=== PATIENT | male | born 1945 | race Two or more races ===

== ENCOUNTER → 2021-06-23 | Outpatient (CLI) | payer MEDICARE, OTHER ==
[~2021-06-23] MED LIST: AMLO5 PO; GLIP5 PO; HYDCHL12.5; Hytrin2 MG; IBUP600 PO; LOSA50; LOSARTAN-HCTZ1 EACH PO; LOSHYD100; METF500 PO; OMEP20ER PO; Percocet 5-3251 EACH PO; Valium5 MG PO
== END ==
LOC: LAB SHORT 15:12
DX: L98.9 Disorder of the skin and subcutaneous tissue, unspecified (principal); L30.8 Other specified dermatitis
CPT/HCPCS: 88305; 88312

== ENCOUNTER 2022-04-10 11:44 | Inpatient (IN) | payer MEDICARE, OTHER ==
[~2022-04-10] VITALS: Ht 177.8 cm; Wt 99.5 kg
[2022-04-10 12:46] LABS: Hematocrit 42.8 % (37.0-53.0); Hemoglobin 14.1 g/dL (13.5-17.5); Mean Corpuscular HGB 27.6 pg (26.0-34.0); Mean Corpuscular HGB Conc 32.9 g/dL (31.5-36.5); Mean Corpuscular Volume 84 fL (80-100); Mean Platelet Volume 9.3 fL (9.1-12.4); Platelet Count 661 K/mm3 (150-400); RDW Coefficient Variation 12.9 % (11.7-14.2); RDW Standard Deviation 39.5 fL (35.1-46.3); Red Blood Cell Count 5.11 M/mm3 (4.30-5.90); White Blood Cell Count 23.82 K/mm3 (4.00-11.30)
[2022-04-10 12:59] LABS: Influenza A, PCR NEGATIVE (NEGATIVE); Influenza B, PCR NEGATIVE (NEGATIVE); Resp Syncytial Virus, PCR NEGATIVE (NEGATIVE); SARS-Cov-2 (COVID-19) PCR, MMC NEGATIVE (NEGATIVE)
[2022-04-10 13:03] LABS: BAND PERCENT MAN 1 % (0-8); BASOPHILS PERCENT MAN 0 % (0-2); EOSINOPHILS PERCENT MAN 0 % (0-6); LYMPHOCYTES ABSOLUTE MAN 0.95 K/mm3 (0.84-5.20); LYMPHOCYTES PERCENT MAN 4 % (21-46); MONOCYTES ABSOLUTE MAN 0.71 K/mm3 (0.16-1.47); MONOCYTES PERCENT MAN 3 % (4-13); NEUTROPHILS ABSOLUTE MAN 22.15 K/mm3 (1.96-9.15); SEG NEUTROPHILS PERCENT MAN 92 % (41-73); TOTAL CELLS COUNTED 100
[2022-04-10 13:06] LABS: Albumin, Blood 2.2 g/dL (3.4-5.0); Albumin/Globulin Ratio 0.5 (0.8-1.8); Bilirubin, Total 0.9 mg/dL (0.1-1.0); Bun/Creatinine Ratio 16.6 (12.0-20.0); Calcium, Blood 8.6 mg/dL (8.5-10.1); Creatinine, Blood 0.97 mg/dL (0.60-1.20); Globulin, Blood 4.5 g/dL (2.2-4.0); Potassium, Blood 3.7 mmol/L (3.5-5.5); Total Protein, Blood 6.7 g/dL (6.4-8.2)
[2022-04-10] MEDS ORDERED: AMLO10 PO (17:22)
[2022-04-10] MEDS ORDERED: ASPI81CH PO (17:23)
[2022-04-10] MEDS ORDERED: CARDURA2 M1 PO (17:24)
[2022-04-10] MEDS ORDERED: Flonase 0.05% Nasal (17:26)
[2022-04-10] MEDS ORDERED: GLIP5 PO (17:27)
[2022-04-10] MEDS ORDERED: LOSARTAN-HCTZ1 EAC3 PO (17:28)
[2022-04-10] MEDS ORDERED: Glucophage 500 mg PO (17:30)
[2022-04-10] MEDS ORDERED: OMEP20ER PO (17:31)
[2022-04-11 05:08] LABS: BASOPHILS ABSOLUTE AUTO 0.07 K/mm3 (0.00-0.23); BASOPHILS PERCENT AUTO 0 % (0-2); EOSINOPHILS ABSOLUTE AUTO 0.27 K/mm3 (0.00-0.68); EOSINOPHILS PERCENT AUTO 1 % (0-6); Hematocrit 40.1 % (37.0-53.0); Hemoglobin 13.3 g/dL (13.5-17.5); IMMATURE GRAN ABSOLUTE AUTO 0.32 K/mm3 (0.00-0.10); IMMATURE GRAN PERCENT AUTO 2 % (0-1); LYMPHOCYTES ABSOLUTE AUTO 1.42 K/mm3 (0.84-5.20); LYMPHOCYTES PERCENT AUTO 7 % (21-46); MONOCYTES ABSOLUTE AUTO 1.64 K/mm3 (0.16-1.47); MONOCYTES PERCENT AUTO 8 % (4-13); Mean Corpuscular HGB 27.7 pg (26.0-34.0); Mean Corpuscular HGB Conc 33.2 g/dL (31.5-36.5); Mean Corpuscular Volume 84 fL (80-100); Mean Platelet Volume 9.1 fL (9.1-12.4); NEUTROPHILS ABSOLUTE AUTO 16.98 K/mm3 (1.96-9.15); NEUTROPHILS PERCENT AUTO 82 % (41-73); Platelet Count 596 K/mm3 (150-400); RDW Standard Deviation 39.8 fL (35.1-46.3)
[2022-04-11 05:38] LABS: Albumin, Blood 1.9 g/dL (3.4-5.0); Albumin/Globulin Ratio 0.5 (0.8-1.8); Bilirubin, Total 0.7 mg/dL (0.1-1.0); Bun/Creatinine Ratio 17.6 (12.0-20.0); Calcium, Blood 8.5 mg/dL (8.5-10.1); Creatinine, Blood 0.85 mg/dL (0.60-1.20); Globulin, Blood 4.2 g/dL (2.2-4.0); Magnesium, Blood 2.4 mg/dL (1.6-2.4); Potassium, Blood 3.6 mmol/L (3.5-5.5); Total Protein, Blood 6.1 g/dL (6.4-8.2)
--- NOTE | 2022-04-11 12:43 | NUR ---
ADMIT NOTE PATIENT NEW ADMIT FROM ER FOR CAVITATED PNEUMONIA WITH SEVERE SEPSIS. ALERT AND ORIENTED ON ARRIVAL TO ROOM. PLEASANT AND COOPERATIVE. MAINTAINING O2 SATS ABOVE 90% ON 4L NC. EXP WHEEZE AND DIM BILAT. WEAK AND SHAKY ON SBA TRANSFER TO BED. BM AND VOIDING WITH URINAL AND BSC. IV FLUID AND ABX RUNNING. CBG COVERED WITH SS. DR SARMIENTO CONSULTED, HE PERFORMED BEDSIDE US AND RECOMMENDS RADIOLOGY GUIDED THORACENTESIS. CT PE STUDY AFTER 1600 TODAY. REPORT GIVEN TO CROSS CUT SAWYER.
--- NOTE | 2022-04-11 15:15 | NUR ---
Discussing care with Dr Caceres, plans for thoracentesis tomorrow afternoon due to lovenox administration and plans for pe study this afternoon/evening, new order to discontinue CT PE study. Will continue to monitor.
--- NOTE | 2022-04-11 17:11 | NUR ---
Shift Summary Assumed care of patient at approx 1138, bedside report from JEVON Mohr. Pt alert, orineted x4, calm and cooperative with care. Pt resting in bed, assisting with repositioning. Pt sob with activity, spo2 >90% on 4-5l o2 via nc, ls clear in upper lobes and diminished in bases. Tele sinus tach 100-110's, occasionally touching 120's with activity, bp elevated this am, trending down. Abd soft, nontender, normoactive bt noted. Edema to ble 1+ pitting. Other vss. No other acute changes noted. Will continue to monitor.
[2022-04-12 04:47] LABS: BASOPHILS ABSOLUTE AUTO 0.08 K/mm3 (0.00-0.23); BASOPHILS PERCENT AUTO 1 % (0-2); EOSINOPHILS ABSOLUTE AUTO 0.24 K/mm3 (0.00-0.68); EOSINOPHILS PERCENT AUTO 2 % (0-6); Hematocrit 38.8 % (37.0-53.0); Hemoglobin 12.6 g/dL (13.5-17.5); IMMATURE GRAN ABSOLUTE AUTO 0.28 K/mm3 (0.00-0.10); IMMATURE GRAN PERCENT AUTO 2 % (0-1); LYMPHOCYTES ABSOLUTE AUTO 1.04 K/mm3 (0.84-5.20); LYMPHOCYTES PERCENT AUTO 7 % (21-46); MONOCYTES ABSOLUTE AUTO 1.19 K/mm3 (0.16-1.47); MONOCYTES PERCENT AUTO 8 % (4-13); Mean Corpuscular HGB 28.4 pg (26.0-34.0); Mean Corpuscular HGB Conc 32.5 g/dL (31.5-36.5); Mean Corpuscular Volume 87 fL (80-100); Mean Platelet Volume 9.2 fL (9.1-12.4); NEUTROPHILS ABSOLUTE AUTO 12.19 K/mm3 (1.96-9.15); NEUTROPHILS PERCENT AUTO 81 % (41-73); Platelet Count 508 K/mm3 (150-400); RDW Coefficient Variation 13.2 % (11.7-14.2); RDW Standard Deviation 41.3 fL (35.1-46.3); Red Blood Cell Count 4.44 M/mm3 (4.30-5.90); White Blood Cell Count 15.02 K/mm3 (4.00-11.30)
[2022-04-12 05:03] LABS: Albumin, Blood 1.6 g/dL (3.4-5.0); Albumin/Globulin Ratio 0.4 (0.8-1.8); Bilirubin, Total 0.5 mg/dL (0.1-1.0); Calcium, Blood 7.8 mg/dL (8.5-10.1); Globulin, Blood 3.9 g/dL (2.2-4.0); Magnesium, Blood 2.2 mg/dL (1.6-2.4); Potassium, Blood 3.3 mmol/L (3.5-5.5); Total Protein, Blood 5.5 g/dL (6.4-8.2)
--- NOTE | 2022-04-12 06:08 | NUR ---
SHIFT SUMMARY NO ACUTE EVENTS OVERNIGHT. PT ALERT AND ORIENTED X4. AFEBRILE. SR/ST 90-100'S. BP STABLE. ON CPAP 3L BLEED IN SATS OVER 93%. X1 ASSIST FOR ADL'S. 1/2NS INFUSING @125/HR. IN BED SLEEPING WITH CALL ALARM AT SIDE, WILL CONTINUE TO MONITOR UNTIL REPORT GIVEN TO ONCOMING RN
[2022-04-12 07:55] LABS: International Normalized Ratio 1.25; Prothrombin Time Results 12.9 Sec (9.7-11.5)
--- NOTE | 2022-04-12 14:45 | NUR ---
Upon receiving a spiritual care referral, I visit pt. Patient immediately explains that his greatest concern is his who is in [place] memory care unit on hospice. He shares personal stories and struggles that he is going through. I conduct a life review, encourage self-care, normalize his exerience and provide therapeutic listening, and prayer. Pt responds well and shows signs of reduced stress and greater inner peace. I will continue to remain available to patient and family.
--- NOTE | 2022-04-12 17:29 | NUR ---
SHIFT SUMMARY PT HAS BEEN RESTING IN ROOM, THEY SLEPT FOR ABOUT TWO HOURS IN THE EARLY AFTERNOON. OXYGEN HAS BEEN TITRATED DOWN TO 2 L/MIN BY NASAL CANNULA AND HAS MAINTAINED SPO2 OF >90%. PT HAS DENIED ANY COMPLAINT OF PAIN OR DISCOMFORT. HEART RATE HAS PERSISTED 90-110 BPM, AND RESPIRATIONS 18-20. BLOOD GLUCOSE HAS PERSISTED IN THE HIGH 200'S (260-285). PT WAS UP TO BEDSIDE COMMODE BY STAND-BY ASSIST ON MULTIPLE OCCASIONS AND WAS ABLE TO GET SELF TO STANDING TO USE URINAL AT BEDSIDE UNASSISTED.
[2022-04-12 23:09] LABS: Vancomycin, Trough 13.4 ug/mL (5.0-10.0)
[2022-04-13 06:41] LABS: BASOPHILS ABSOLUTE AUTO 0.12 K/mm3 (0.00-0.23); BASOPHILS PERCENT AUTO 1 % (0-2); EOSINOPHILS ABSOLUTE AUTO 0.32 K/mm3 (0.00-0.68); EOSINOPHILS PERCENT AUTO 2 % (0-6); Hematocrit 38.6 % (37.0-53.0); Hemoglobin 12.6 g/dL (13.5-17.5); IMMATURE GRAN ABSOLUTE AUTO 0.42 K/mm3 (0.00-0.10); IMMATURE GRAN PERCENT AUTO 3 % (0-1); LYMPHOCYTES ABSOLUTE AUTO 1.38 K/mm3 (0.84-5.20); LYMPHOCYTES PERCENT AUTO 9 % (21-46); MONOCYTES ABSOLUTE AUTO 1.35 K/mm3 (0.16-1.47); MONOCYTES PERCENT AUTO 9 % (4-13); Mean Corpuscular HGB 28.2 pg (26.0-34.0); Mean Corpuscular HGB Conc 32.6 g/dL (31.5-36.5); Mean Corpuscular Volume 86 fL (80-100); Mean Platelet Volume 9.2 fL (9.1-12.4); NEUTROPHILS PERCENT AUTO 76 % (41-73); Platelet Count 495 K/mm3 (150-400); RDW Coefficient Variation 13.2 % (11.7-14.2); RDW Standard Deviation 41.6 fL (35.1-46.3); Red Blood Cell Count 4.47 M/mm3 (4.30-5.90); White Blood Cell Count 15.09 K/mm3 (4.00-11.30)
[2022-04-13 06:53] LABS: Albumin, Blood 1.6 g/dL (3.4-5.0); Albumin/Globulin Ratio 0.4 (0.8-1.8); Bilirubin, Total 0.5 mg/dL (0.1-1.0); Bun/Creatinine Ratio 14.8 (12.0-20.0); Calcium, Blood 7.3 mg/dL (8.5-10.1); Creatinine, Blood 0.88 mg/dL (0.60-1.20); Globulin, Blood 4.2 g/dL (2.2-4.0); Magnesium, Blood 2.1 mg/dL (1.6-2.4); Phosphorus, Blood 3.3 mg/dL (2.5-4.9); Potassium, Blood 3.5 mmol/L (3.5-5.5); Total Protein, Blood 5.8 g/dL (6.4-8.2)
--- NOTE | 2022-04-13 07:30 | NUR ---
SHIFT SUMMARY NO ACUTE EVENTS OVERNIGHT. PT ALERT AND ORIENTED X4. ON 1.5L-3L NC SATS OVER 92%. BP STABLE. AFEBRILE. ON CPAP WHILE SLEEPING. SBA FOR ADL'S. PT SLEEPING WITH CALL ALARM AT SIDE
--- NOTE | 2022-04-13 16:33 | NUR ---
SHIFT SUMMARY PT HAS BEEN RESTING IN ROOM THROUGHOUT THE DAY. PT HAS EXPRESSED AN INCREASED FEELING OF TIREDNESS TODAY OVER YESTERDAY. SUPPLEMENTAL OXYGEN HAS REMAINED STEADY AT 3L/MIN VIA NASAL CANNULA, SPO2 HAS READ 92-94%. PT HAS COMPLAINED OF CHEST DISCOMFORT RELATED TO PERSISTENT PRODUCTIVE COUGH, PROVIDER WAS NOTIFIED AND ORDERS WERE OBTAINED.
[2022-04-14 03:58] LABS: BASOPHILS ABSOLUTE AUTO 0.13 K/mm3 (0.00-0.23); BASOPHILS PERCENT AUTO 1 % (0-2); EOSINOPHILS ABSOLUTE AUTO 0.43 K/mm3 (0.00-0.68); EOSINOPHILS PERCENT AUTO 3 % (0-6); Hemoglobin 12.4 g/dL (13.5-17.5); IMMATURE GRAN ABSOLUTE AUTO 0.42 K/mm3 (0.00-0.10); IMMATURE GRAN PERCENT AUTO 3 % (0-1); LYMPHOCYTES ABSOLUTE AUTO 1.47 K/mm3 (0.84-5.20); LYMPHOCYTES PERCENT AUTO 10 % (21-46); MONOCYTES ABSOLUTE AUTO 1.36 K/mm3 (0.16-1.47); MONOCYTES PERCENT AUTO 9 % (4-13); Mean Corpuscular HGB 27.8 pg (26.0-34.0); Mean Corpuscular HGB Conc 32.6 g/dL (31.5-36.5); Mean Corpuscular Volume 85 fL (80-100); Mean Platelet Volume 9.1 fL (9.1-12.4); NEUTROPHILS ABSOLUTE AUTO 11.61 K/mm3 (1.96-9.15); NEUTROPHILS PERCENT AUTO 75 % (41-73); Platelet Count 483 K/mm3 (150-400); RDW Coefficient Variation 13.2 % (11.7-14.2); RDW Standard Deviation 40.9 fL (35.1-46.3); Red Blood Cell Count 4.46 M/mm3 (4.30-5.90); White Blood Cell Count 15.42 K/mm3 (4.00-11.30)
[2022-04-14 04:18] LABS: Albumin, Blood 1.6 g/dL (3.4-5.0); Albumin/Globulin Ratio 0.4 (0.8-1.8); Bilirubin, Total 0.5 mg/dL (0.1-1.0); Bun/Creatinine Ratio 14.6 (12.0-20.0); Calcium, Blood 7.8 mg/dL (8.5-10.1); Creatinine, Blood 0.96 mg/dL (0.60-1.20); Globulin, Blood 4.3 g/dL (2.2-4.0); Potassium, Blood 3.5 mmol/L (3.5-5.5); Total Protein, Blood 5.9 g/dL (6.4-8.2)
--- NOTE | 2022-04-14 05:54 | NUR ---
SHIFT SUMMARY NO ACUTE EVENTS OVERNIGHT. PT ALERT AND ORIENTED X4. ON 3L NC THROUGHOUT THE NIGHT, SATS OVER 92%. AFEBRILE. HR SR/ST 90-100'S. BP STABLE. NO RESPIRATORY DISTRESS OTHER THAN AN EPISODE OF HARSH COUGHING. TKO RUNNING FOR ANTIBIOTICS. SBA FOR ADL'S. IN BED SLEEPING WITH CALL ALARM AT SIDE, WILL CONTINUE TO MONITOR UNTIL REPORT GIVEN TO DAYSHIFT RN
[2022-04-14 11:58] LABS: Vancomycin, Trough 15.2 ug/mL (5.0-10.0)
--- NOTE | 2022-04-14 16:10 | NUR ---
After pt has a visit from DR. Julian, I visit with pt. Pt is light hearted at first then becomes quite tearful. He lists his fears and concerns. One of the main concerns is his spouse, Stefania, who is on hosp[facility] care at [facility] with D[facility]. He has questions centered around God and nazario. I normalize his experience, and provide therapeutic listening, gentle grief counsellor, theraological insights and prayer. Pt responds well and shows signs of increased peace. I will continue to remain available.
--- NOTE | 2022-04-14 17:20 | NUR ---
SHIFT SUMMARY PT HAS BEEN RESTING IN BED, THEY SLEPT FOR ABOUT AN HOUR AROUND MIDDAY. SUPPLEMENTAL OXYGEN WAS TITRATED DOWN TO 2L/MIN BY NASAL CANNULA AND SPO2 REMAINED >90%. PT STATED THAT THEY FEEL THAT THEY ARE BREATHING BETTER TODAY. PT WAS ABLE TO STAND AT BEDSIDE AND TRANSFER TO [facility] UNASSISTED. HEART RATE HAS MAINTAINED 90-110 BPM.
[2022-04-15 04:26] LABS: BASOPHILS ABSOLUTE AUTO 0.12 K/mm3 (0.00-0.23); BASOPHILS PERCENT AUTO 1 % (0-2); EOSINOPHILS ABSOLUTE AUTO 0.42 K/mm3 (0.00-0.68); EOSINOPHILS PERCENT AUTO 3 % (0-6); Hematocrit 38.9 % (37.0-53.0); Hemoglobin 12.5 g/dL (13.5-17.5); IMMATURE GRAN ABSOLUTE AUTO 0.42 K/mm3 (0.00-0.10); IMMATURE GRAN PERCENT AUTO 3 % (0-1); LYMPHOCYTES ABSOLUTE AUTO 1.36 K/mm3 (0.84-5.20); LYMPHOCYTES PERCENT AUTO 9 % (21-46); MONOCYTES ABSOLUTE AUTO 1.36 K/mm3 (0.16-1.47); MONOCYTES PERCENT AUTO 9 % (4-13); Mean Corpuscular HGB 27.4 pg (26.0-34.0); Mean Corpuscular HGB Conc 32.1 g/dL (31.5-36.5); Mean Corpuscular Volume 85 fL (80-100); Mean Platelet Volume 9.3 fL (9.1-12.4); NEUTROPHILS ABSOLUTE AUTO 11.35 K/mm3 (1.96-9.15); NEUTROPHILS PERCENT AUTO 76 % (41-73); Platelet Count 505 K/mm3 (150-400); RDW Coefficient Variation 13.3 % (11.7-14.2); RDW Standard Deviation 41.7 fL (35.1-46.3); Red Blood Cell Count 4.57 M/mm3 (4.30-5.90); White Blood Cell Count 15.03 K/mm3 (4.00-11.30)
[2022-04-15 04:47] LABS: Albumin, Blood 1.7 g/dL (3.4-5.0); Albumin/Globulin Ratio 0.4 (0.8-1.8); Bilirubin, Total 0.6 mg/dL (0.1-1.0); Bun/Creatinine Ratio 12.1 (12.0-20.0); C-REACTIVE PROTEIN, EXT RANGE 16.2 mg/dL (0.000-0.300); Creatinine, Blood 0.99 mg/dL (0.60-1.20); Globulin, Blood 4.5 g/dL (2.2-4.0); Potassium, Blood 3.9 mmol/L (3.5-5.5); Total Protein, Blood 6.2 g/dL (6.4-8.2)
--- NOTE | 2022-04-15 18:08 | NUR ---
NO ACUTE EVENTS T/O THE SHIFT. PT CONTINUES TO WAIT FOR A BED, [facility] IN [place] HAS ACCEPTED AND WILL NOTIFIY [facility] WHEN A BED BECOMES AVAILABLE. PT HAS HAD NO COMPLAINTS T/O THE SHIFT, MEDICATIONS GIVEN PER MD ORDERS. PT RESTING COMFORTABLY. SEE DOCUMENTED VSS AND ASSESSMENT. PT USES CALL LIGHT FOR NEEDS, CALL LIGHT IN REACH, WILL CONTINUE TO MONITOR AND GIVE REPORT TO NOC SHIFT RN.
--- NOTE | 2022-04-16 01:36 | NUR ---
CALL RECEIVED FROM DR[facility] AT TRANSFER CENTER - REQUEST FOR SHIFT UPDATE ON PATIENT. MOST RECENT VITAL SIGNS, LAB RESULTS, IMAGING RESULTS AND SHIFT ASSESSMENT DATA PROVIDED. PER QUE, EXPECTATION IS THAT A BED MAY NOT BE AVAILABLE BEFORE MONDAY.
[2022-04-16 04:35] LABS: BASOPHILS ABSOLUTE AUTO 0.11 K/mm3 (0.00-0.23); BASOPHILS PERCENT AUTO 1 % (0-2); EOSINOPHILS ABSOLUTE AUTO 0.46 K/mm3 (0.00-0.68); EOSINOPHILS PERCENT AUTO 3 % (0-6); Hematocrit 38.9 % (37.0-53.0); Hemoglobin 12.4 g/dL (13.5-17.5); IMMATURE GRAN ABSOLUTE AUTO 0.52 K/mm3 (0.00-0.10); IMMATURE GRAN PERCENT AUTO 4 % (0-1); LYMPHOCYTES ABSOLUTE AUTO 1.51 K/mm3 (0.84-5.20); LYMPHOCYTES PERCENT AUTO 11 % (21-46); MONOCYTES ABSOLUTE AUTO 1.21 K/mm3 (0.16-1.47); MONOCYTES PERCENT AUTO 9 % (4-13); Mean Corpuscular HGB 27.3 pg (26.0-34.0); Mean Corpuscular HGB Conc 31.9 g/dL (31.5-36.5); Mean Corpuscular Volume 86 fL (80-100); Mean Platelet Volume 9.1 fL (9.1-12.4); NEUTROPHILS ABSOLUTE AUTO 9.61 K/mm3 (1.96-9.15); NEUTROPHILS PERCENT AUTO 72 % (41-73); Platelet Count 521 K/mm3 (150-400); RDW Coefficient Variation 13.2 % (11.7-14.2); RDW Standard Deviation 41.3 fL (35.1-46.3); Red Blood Cell Count 4.55 M/mm3 (4.30-5.90); White Blood Cell Count 13.42 K/mm3 (4.00-11.30)
[2022-04-16 05:09] LABS: Albumin, Blood 1.7 g/dL (3.4-5.0); Anion Gap 4 mmol/L (6-16); Blood Urea Nitrogen 11 mg/dL (8-24); Bun/Creatinine Ratio 11.7 (12.0-20.0); CO2, Blood 31 mmol/L (21-32); Calcium, Blood 8.4 mg/dL (8.5-10.1); Chloride, Blood 101 mmol/L (98-108); Creatinine, Blood 0.94 mg/dL (0.60-1.20); Glomerular Filtration Rate 85 (60-); Glucose, Blood 186 mg/dL (70-99); Magnesium, Blood 2.1 mg/dL (1.6-2.4); Phosphorus, Blood 4.3 mg/dL (2.5-4.9); Potassium, Blood 4.1 mmol/L (3.5-5.5); Sodium, Blood 136 mmol/L (136-145)
--- NOTE | 2022-04-16 06:25 | NUR ---
NO ACUTE EVENTS OVERNIGHT. MR. KELLER CONTINUES TO BE DEPENDENT ON SUPPLEMENTARY OXYGEN AT 3 LPM PER NASAL CANNULA AND IS DYSPNEIC WITH MINIMAL EXERTION. PT REPORTS THAT HIS COUGH HAS LESSENED COMPARED TO PREVIOUS NIGHTS, BUT DOES STILL ENDORSE SHORTNESS OF BREATH WITH ACTIVITY. ABDOMEN IS DISTENDED BUT SOFT, PT DENIES PAIN OR DISCOMFORT WITH PALPATION. POWERGLIDE PALCED TO LEFT UPPER ARM.
[2022-04-16 11:57] LABS: Vancomycin, Trough 15.1 ug/mL (5.0-10.0)
--- NOTE | 2022-04-16 14:28 | NUR ---
REPORT CALLED TO NIRAJ ESCOTO AT [facility] RM 5041 PH [phone] AT 1425. PT TRANSPORTED VIA AMBULANCE, ABLE TO AMBULATE AND TRANSFER TO [facility] W/O DIFFICULTY. PT'S BELONGINGS SENT WITH HIS FAMILY AT BEDSIDE. VSS. PT HAS NO COMPLAINTS OR QUESTIONS AT THE TIME OF TRANSFER.
== END 2022-04-16 14:25 | disposition short-term general hospital (02) | DRG 871 ==
LOC: ER 11:44 → PCU 16:45 → ERHOLD 16:45 → PCU 04-11 09:14
PROVIDERS: Family Medicine; Hospitalist; Physician Assistant; ADMIT Family Medicine
PROC: 3E03329 Introduction of Other Anti-infective into Peripheral Vein, Percutaneous Approach (ICD-10-PCS; principal; 2022-04-10)
PROC: 0W9930Z Drainage of Right Pleural Cavity with Drainage Device, Percutaneous Approach (ICD-10-PCS; 2022-04-12)
DX: A41.9 Sepsis, unspecified organism (principal); J18.9 Pneumonia, unspecified organism; J96.01 Acute respiratory failure with hypoxia; J86.9 Pyothorax without fistula; J91.8 Pleural effusion in other conditions classified elsewhere; E87.2 Acidosis; Z20.822 Contact with and (suspected) exposure to COVID-19; R65.20 Severe sepsis without septic shock; I10 Essential (primary) hypertension; R79.89 Other specified abnormal findings of blood chemistry; E78.5 Hyperlipidemia, unspecified; E11.9 Type 2 diabetes mellitus without complications; K21.9 Gastro-esophageal reflux disease without esophagitis; M10.9 Gout, unspecified; G47.33 Obstructive sleep apnea (adult) (pediatric); Z90.49 Acquired absence of other specified parts of digestive tract; Z98.52 Vasectomy status; Z79.84 Long term (current) use of oral hypoglycemic drugs; Z79.899 Other long term (current) drug therapy
CPT/HCPCS: 0241U; 32555; 36415; 71045; 71260; 74177; 80053; 80069; 80202; 82947; 83036; 83605; 83735; 84100; 84145; 84484; 85025; 85379; 85610; 85730; 86140; 87040; 87449; 93005; 93010; 94640; 94660; 94664; 94762; 96365-59; 99285-25; A9270; C1751; J0295; J0456; J0696; J1650; J1815; J3370; J7030; J7050; Q9967

== ENCOUNTER → 2024-12-18 | Outpatient (CLI) | payer MEDICARE, OTHER | LOC: LAB 10:30 → LAB SHORT 10:30 | DX: E11.42 Type 2 diabetes mellitus with diabetic polyneuropathy (principal) ==